=== PATIENT | female | born 1990 | race Caucasian/White ===

== ENCOUNTER 2016-11-21 17:08 | Emergency (ER) | payer SELFPAY ==
[~2016-11-21] VITALS: Ht 152.4 cm; Wt 61.0 kg
[2016-11-21 17:38] VITALS: Ht 152.4 cm; Wt 61.0 kg
[2016-11-21] MEDS ORDERED: SOD CHLORIDE 0.9% 1,000 ML IV STA (18:54)
[2016-11-21] MEDS ORDERED: METOCLOPRAMIDE 10 MG TAB PO ONE (19:00)
[2016-11-21 19:33] LABS: ADD SCAN DIFF NO
[2016-11-21 19:36] LABS: ADD UMIC YES; BASOPHILS % 0.3 % (0.0-2.0); EOSINOPHILS # 0.1 10^3/ul (0.0-0.5); HEMATOCRIT 37.1 % (37.0-47.0); HEMOGLOBIN 13.1 g/dl (12.0-16.0); LYMPHOCYTES # 2.8 10^3/ul (0.8-2.9); LYMPHOCYTES % 31.5 % (15.0-51.0); MEAN CORPUSCULAR HEMOGLOBIN 32.1 pg (29.0-33.0); MEAN CORPUSCULAR HGB CONC 35.3 g/dl (32.0-37.0); MEAN CORPUSCULAR VOLUME 90.9 fl (82.0-101.0); MEAN PLATELET VOLUME 9.7 fl (7.4-10.4); MONOCYTE # 0.7 10^3/ul (0.3-0.9); MONOCYTES % 7.3 % (0.0-11.0); NEUTROPHIL # 5.3 10^3/ul (1.6-7.5); NEUTROPHILS % 59.7 % (39.0-77.0); PLATELET COUNT 269 10^3/UL (140-415); RED BLOOD COUNT 4.08 10^6/ul (4.20-5.40); RED CELL DISTRIBUTION WIDTH 11.9 % (11.5-14.5); URINE BILIRUBIN (Dip) NEGATIVE (NEGATIVE); URINE BLOOD (Dip) 3+ (NEGATIVE); URINE COLOR LT. YELLOW (YELLOW); URINE GLUCOSE (Dip) NEGATIVE (NEGATIVE); URINE KETONES (Dip) NEGATIVE (NEGATIVE); URINE LEUKOCYTE ESTERASE (Dip) 3+ (NEGATIVE); URINE NITRITE (Dip) NEGATIVE (NEGATIVE); URINE TOTAL PROTEIN (Dip) NEGATIVE (NEGATIVE); URINE UROBILINOGEN (Dip) 0.2 E.U./dL (0.1-1.0); WHITE BLOOD COUNT 8.9 10^3/ul (4.8-10.8)
[2016-11-21 19:53] LABS: BACTERIA,URINE MANY; SQUAMOUS EPITHELIAL CELL,UR MANY
[2016-11-21] MEDS ORDERED: CEPHALEXIN 500 MG CAP PO STA (20:02)
--- NOTE | 2016-11-21 20:48 | RADRPT ---
PROCEDURE: US OB. CLINICAL INDICATION: Vaginal bleeding. TECHNIQUE: Transabdominal and transvaginal views of the pelvis are available for review. COMPARISON: No. FINDINGS: Uterus is identified and measured 9.3 cm sagittal by 6 cm AP by 6.9 cm transverse. 2 gestational sacs are identified. Twin A: Placenta: Circumferential grade 0 placenta.. Presentation:Mobile. Mean sac diameter: 1.97 cm equals 6 weeks 6 days for twin A. A yolk sac is identified. [place]-rump length:0.83 cm:6 weeks 5 days. heart rate:119 -121 beats per minute Amniotic fluid volume: Normal. Ultrasound estimated gestational age:6 weeks 5 days plus or minus year weeks 3 days. Twin B: Placenta: Circumferential. Presentation:Mobile with a yolk sac identified. Mean sac diameter: 2.66 cm = 7 weeks 5 days. [place]-rump length:1.1 cm = 7 weeks 1 day. heart rate:141-144 beats per minute. Amniotic fluid volume: Normal. Ultrasound estimated gestational age:The right ovary measured 3.1 x 1.4 x 1.1 cm. There is normal blood flow to the right ovary. The left ovary measures 2.1 by 2.9 x 2.2 cm with normal blood flow o n Doppler imaging. No ovarian or adnexal mass lesion is seen. There is trace fluid in the cul-de-sac. A subchorionic he morrhage is noted in the ventral aspect of the uterus between the gestational sacs. IMPRESSION: 1. A twin a dichorionic diamniotic gestation is identified. The calculated gestational age of twin A is 6 weeks 5 days plus or minus year weeks 3 days. UT (AUA) for twin A is July 12, 2017. 2. The calculated gestational age for twin B is 7 weeks 3 days plus or minus 0 weeks 4 days. TU (AU A) for twin B is 07/07/2017. 2. A subchorionic hemorrhage is identified measuring about 2.1 cm by 0.4 cm abutting the ventral chang faces of both gestational sacs. 3. Trace fluid is noted in the cul-de-sac. 4. Normal ovaries with normal blood flow to both ovaries. RPTAT:AAJJ Ramesh Rai Physician Date Time Electronically viewed and signed by Ramesh Rai Physician on 11/21/2016 20:47 JM/
[2016-11-21] MEDS ORDERED: CEPH-443 PO (20:52)
--- NOTE | 2016-11-21 20:58 | ERD ---
ER Documentation Chief Complaint Date/Time DATE: 11/21/16 TIME: 20:54 Chief Complaint HEAVY VAGINAL BLEEDING, UNKNOWN HOW MANY WEEKS, NAUSEA, VOMITING HPI This is a 26-year-old female patient presenting to the emergency department with last menstrual period October 10 complaining of vaginal bleeding for the past 2 days. Patient states that she uses 1 pad per day. Patient also complains of pelvic pain, rating it 6 out of 10 mostly in the left side. Patient admits to having intermittent nausea and vomiting. She denies any fevers, flank pain, dysuria. Denies diarrhea ROS All systems reviewed and are negative except as per history of present illness. Medications Home Meds Active Scripts Cephalexin* (Keflex*) 500 Mg Capsule, 500 MG PO TID for 7 Days, CAP Prov:MARIIA MA PA-C 11/21/16 Allergies Allergies: Coded Allergies: No Known Drug Allergies (Verified Allergy, Unknown, 11/21/16) PMhx/Soc Medical and Surgical Hx: pt denies Medical Hx, pt denies Surgical Hx Hx Alcohol Use: Yes (SOCIALLY LAST DRANK 15DAYS AGO) Hx Substance Use: No Hx Tobacco Use: No Smoking Status: Never smoker Physical Exam Vitals Vital Signs Date Time Temp Pulse Resp B/P Pulse Ox O2 Delivery O2 Flow Rate FiO2 11/21/16 17:38 98.7 73 17 128/76 100 Physical Exam General: well-developed/well-nourished, in no apparent distress, non-toxic appearing HENT: NC/AT, bilateral tympanic membrane is normal with good cone of light, nares patent, oropharynx clear without exudates Eyes: Conjunctiva normal, PERRLA, EOMI Neck: Supple, no lymphadenopathy Pulm: CTA bilaterally, no rales, rhonchi, or wheezing heard CV: Normal S1S2 GI: Soft, non-distended, normal bowel sounds, tender to palpation in pelvic region, negative rosvings, negative mcgill's Back: No midline tenderness, no masses, No CVAT Ext: No clubbing, cyanosis, or edema Neuro: Alert and Orientated, gait normal Skin: Intact, normal turgor Psych: Normal mood and mentation Result Diagram: 11/21/161924 Results 24 hrs Laboratory Tests Test 11/21/16 19:25 White Blood Count 8.910^3/ul Red Blood Count 4.0810^6/ul Hemoglobin 13.1g/dl Hematocrit 37.1% Mean Corpuscular Volume 90.9fl Mean Corpuscular Hemoglobin 32.1pg Mean Corpuscular Hemoglobin Concent 35.3g/dl Red Cell Distribution Width 11.9% Platelet Count 40527^3/UL Mean Platelet Volume 9.7fl Neutrophils % 59.7% Lymphocytes % 31.5% Monocytes % 7.3% Eosinophils % 1.0% Basophils % 0.3% Nucleated Red Blood Cells % 0.0/100WBC Neutrophils # 5.310^3/ul Lymphocytes # 2.810^3/ul Monocytes # 0.710^3/ul Eosinophils # 0.110^3/ul Basophils # 0.010^3/ul Nucleated Red Blood Cells # 0.010^3/ul Urine Color LT. YELLOW Urine Clarity HAZY Urine pH 6.0 Urine Specific [place] <=1.005 Urine Ketones NEGATIVE Urine Nitrite NEGATIVE Urine Bilirubin NEGATIVE Urine Urobilinogen 0.2 E.U./dL Urine Leukocyte Esterase 3+ Urine Microscopic RBC 5-10/HPF Urine Microscopic WBC 25-50/HPF Urine Squamous Epithelial Cells MANY Urine Bacteria MANY Urine Hemoglobin 3+ Urine Glucose NEGATIVE% Urine Total Protein NEGATIVE Beta HCG, Quantitative 466011.0mIU/ml Current Medications Medications (Trade) Dose Ordered Sig/Nohemi Route PRN Reason Start Time Stop Time Status Last Admin Dose Admin Sodium Chloride (NS) 1,000 ml @ 1,000 mls/hr Q1H STAT IV 11/21/16 18:54 11/21/16 18:59 DC Metoclopramide HCl (Reglan) 10 mg ONCE ONCE PO 11/21/16 19:00 11/21/16 19:01 DC 11/21/16 19:23 Cephalexin (Keflex) 500 mg ONCE STAT PO 11/21/16 20:02 11/21/16 20:03 DC 11/21/16 20:11 Procedures/MDM This is a 26-year-old female last menstrual period October 10 presenting to the emergency department complaining of vaginal bleeding and pelvic pain for the past 2 days likely due to a urinary tract infection. There was no evidence of complete , ectopic , pyelonephritis. Lab work was in the ED. CBC did not show any evidence of leukocytosis or anemia. Beta-hCG was elevated however patient is having twins and within normal limits, 197,550 Patient appears well, stable vital signs for discharge for home. I discussed with her to follow-up with her primary care physician. Discussed return to the ER for any worsening signs or symptoms. She understands and agrees with this plan OB ultrasound: 1. A twin a dichorionic diamniotic gestation is identified. The calculated gestational age of twin A is 6 weeks 5 days plus or minus year weeks 3 days. TU (AUA) for twin A is July 12, 2017. 2. The calculated gestational age for twin B is 7 weeks 3 days plus or minus 0 weeks 4 days. TU (AUA) for twin B is 07/07/2017. 2. A subchorionic hemorrhage is identified measuring about 2.1 cm by 0.4 cm abutting the ventral surfaces of both gestational sacs. 3. Trace fluid is noted in the cul-de-sac. 4. Normal ovaries with normal blood flow to both ovaries. Prescription Keflex is given Departure Diagnosis: Primary Impression: Vaginal bleeding in patient at less than 20 weeks ges... Additional Impression: UTI (urinary tract infection) during Condition: Stable Patient Instructions: Understanding Urinary Tract Infections (UTIs), Bleeding During Early Additional Instructions: Visite a rubio lisa mills para un EXAMEN.Regrese a estas instalaciones si no se mejora rebecca esperbamos o rebecca le dijimos. [place] toda la medicina jonelle y rebecca se le indic. Regrese a estas instalaciones si no se mejora rebecca esperbamos o rebecca le dijimos. MARIIA MA PA-C Nov 21, 2016 20:57
[2016-11-21 21:09] VITALS: BP 125/78; PULSE 94; RESP 16
== END 2016-11-21 21:10 | disposition home or self-care (01) ==
LOC: FTE 17:08
DX: O20.9 Hemorrhage in early pregnancy, unspecified (principal); O23.41 Unspecified infection of urinary tract in pregnancy, first trimester; R10.2 Pelvic and perineal pain; Z3A.01 Less than 8 weeks gestation of pregnancy
CPT/HCPCS: 36415; 76801; 76817; 81001; 84702; 85025; 86900; 86901; J7030

== ENCOUNTER 2017-02-11 00:38 | Emergency (ER) | payer MEDICAID ==
[~2017-02-11] VITALS: Ht 134.6 cm; Wt 64.0 kg
[~2017-02-11 00:38] MED LIST: CEPH-443 PO
[2017-02-11 00:44] VITALS: Ht 134.6 cm; Wt 64.0 kg
[2017-02-11] MEDS ORDERED: ONDANSETRON (ODT) 4 MG TAB ODT STA (03:34)
[2017-02-11 03:52] LABS: URINE BLOOD (Dip) POC 3+ (NEGATIVE)
[2017-02-11 04:02] LABS: BASOPHILS % 0.2 % (0.0-2.0); EOSINOPHILS % 0.2 % (0.0-7.0); HEMATOCRIT 33.1 % (37.0-47.0); HEMOGLOBIN 11.9 g/dl (12.0-16.0); LYMPHOCYTES # 1.8 10^3/ul (0.8-2.9); LYMPHOCYTES % 14.7 % (15.0-51.0); MEAN CORPUSCULAR HEMOGLOBIN 32.8 pg (29.0-33.0); MEAN CORPUSCULAR VOLUME 91.2 fl (82.0-101.0); MEAN PLATELET VOLUME 9.6 fl (7.4-10.4); MONOCYTE # 0.7 10^3/ul (0.3-0.9); MONOCYTES % 6.2 % (0.0-11.0); NEUTROPHILS % 78.3 % (39.0-77.0); PLATELET COUNT 250 10^3/UL (140-415); RED BLOOD COUNT 3.63 10^6/ul (4.20-5.40); RED CELL DISTRIBUTION WIDTH 12.3 % (11.5-14.5)
--- NOTE | 2017-02-11 04:03 | ERD ---
ER Documentation Chief Complaint Date/Time DATE: 02/11/17 TIME: 04:02 Chief Complaint 19 WEEKS FLANK/RIB PAIN, NAUSEA/VOMITING. HPI 36-year-old female presents to emergency department for complaints of right rib pain and right flank pain and right-sided abdominal pain the started yesterday. Patient's having a twin gestation, is currently at 19 week , patient is 2 para 1 0. Patient estimated date of confinement 2017. Patient denies any vaginal bleeding. Patient has been vomiting ever since and has been continuously. Patient denies any fever or chills. Patient took Tylenol home to help with pain with mild relief. Patient describes the pain as sharp pain, 8/10 scale, is worse upon movement. ROS All systems reviewed and are negative except as per history of present illness. Medications Home Meds Active Scripts Cephalexin* (Keflex*) 500 Mg Capsule, 500 MG PO QID for 10 Days, CAP Prov:TAMRA SERNA NP 02/11/17 Acetaminophen* (Tylophen*) 500 Mg Capsule, 1 CAP PO Q6H Y for PAIN AND OR ELEVATED TEMP, #20 CAP Prov:TAMRA SERNA [employer] 02/11/17 Cephalexin* (Keflex*) 500 Mg Capsule, 500 MG PO TID for 7 Days, CAP Prov:MARIIA MA PA-C 11/21/16 Allergies Allergies: Coded Allergies: No Known Drug Allergies (Verified Allergy, Unknown, 11/21/16) PMhx/Soc History of Surgery: No Anesthesia Reaction: No Hx Neurological Disorder: No Hx Respiratory Disorders: No Hx Cardiac Disorders: No Hx Psychiatric Problems: No Hx Miscellaneous Medical Probl: No Hx Alcohol Use: Yes (SOCIALLY LAST DRANK 15DAYS AGO) Hx Substance Use: No Hx Tobacco Use: No Smoking Status: Never smoker FmHx Family History: No coronary disease, No diabetes, No other Physical Exam Vitals Vital Signs Date Time Temp Pulse Resp B/P Pulse Ox O2 Delivery O2 Flow Rate FiO2 02/11/17 06:06 98.6 63 16 110/69 100 Room Air 02/11/17 00:44 98.4 88 16 144/73 100 Physical Exam GENERAL: The patient is well developed and appropriate for usual state of health, in no apparent distress. CHEST: Clear to auscultation bilaterally. There are no rales, wheezes or rhonchi. Tenderness on palpation and right rib right mid back area. HEART: Regular rate and rhythm. No murmurs, clicks, rubs or gallops. No S3 or S4. ABDOMEN: Soft, nontender and nondistended. Good bowel sounds. No rebound or guarding. No gross peritonitis. No gross organomegaly or masses. No Oconnor sign or McBurney point tenderness. BACK: No midline or flank tenderness. EXTREMITIES: Equal pulses bilaterally. There is no peripheral clubbing, cyanosis or edema. No focal swelling or erythema. Full range of motion. Grossly neurovascularly intact. NEURO: Alert and oriented. Cranial nerves 2-12 intact. Motor strength in all 4 extremities with 5/5 strength. Sensation grossly intact. Normal speech and gait. SKIN: There is no apparent rash or petechia. The skin is warm and dry. HEMATOLOGIC AND LYMPHATIC: There is no evidence of excessive bruising or lymphedema. No gross cervical, axillary, or inguinal lymphadenopathy. Result Diagram: 02/11/17 0345 Results 24 hrs Laboratory Tests Test 02/11/17 03:40 02/11/17 03:45 02/11/17 03:57 Urine Color YELLOW Urine Clarity CLOUDY Urine pH 8.0 Urine Specific [place] 1.014 Urine Ketones NEGATIVEmg/dL Urine Nitrite NEGATIVEmg/dL Urine Bilirubin NEGATIVEmg/dL Urine Urobilinogen NEGATIVEmg/dL Urine Leukocyte Esterase 3+A[place]/ul Urine Microscopic RBC > 182/HPF Urine Microscopic WBC > 182/HPF Urine Bacteria MODERATE/HPF Urine Mucus FEW/HPF Urine Hemoglobin 2+mg/dL Urine Glucose NEGATIVEmg/dL Urine Total Protein 2+mg/dl White Blood Count 12.010^3/ul Red Blood Count 3.6310^6/ul Hemoglobin 11.9g/dl Hematocrit 33.1% Mean Corpuscular Volume 91.2fl Mean Corpuscular Hemoglobin 32.8pg Mean Corpuscular Hemoglobin Concent 36.0g/dl Red Cell Distribution Width 12.3% Platelet Count 19011^3/UL Mean Platelet Volume 9.6fl Neutrophils % 78.3% Lymphocytes % 14.7% Monocytes % 6.2% Eosinophils % 0.2% Basophils % 0.2% Nucleated Red Blood Cells % 0.0/100WBC Neutrophils # (Manual) 910^3/ul Lymphocytes # 1.810^3/ul Monocytes # 0.710^3/ul Eosinophils # 0.010^3/ul Basophils # 0.010^3/ul Nucleated Red Blood Cells # 0.010^3/ul Beta HCG, Quantitative 47717.0mIU/ml Bedside Urine pH (LAB) 8.5 Bedside Urine Protein (LAB) 3+ Bedside Urine Glucose (UA) Negative Bedside Urine Ketones (LAB) Negative Bedside Urine Blood 3+ Bedside Urine Nitrite (LAB) Negative Bedside Urine Leukocyte Esterase (L 1+ Current Medications Medications (Trade) Dose Ordered Sig/Nohemi Route PRN Reason Start Time Stop Time Status Last Admin Dose Admin Ondansetron HCl (Zofran Odt) 4 mg ONCE STAT ODT 02/11/17 03:34 02/11/17 03:36 DC 02/11/17 04:09 Acetaminophen (Tylenol Tab) 650 mg ONCE ONCE PO 02/11/17 04:30 02/11/17 04:31 DC 02/11/17 04:09 Ceftriaxone Sodium 1 gm 1 gm ONCE ONCE IM 02/11/17 05:00 02/11/17 05:00 DC Ceftriaxone Sodium (Rocephin) 50 ml @ 100 mls/hr ONCE ONCE IVPB 02/11/17 05:00 02/11/17 05:29 DC 02/11/17 05:09 Patient was given Zofran here in the emergency department. After treatment, patient was able to tolerate po fluids here in the emergency department without any vomiting. There is no signs and symptoms of dehydration. PROCEDURE: Obstetrical ultrasound, limited. CLINICAL INDICATION: Pelvic pain. TECHNIQUE: Multiple sonographic images of the pelvis were obtained using transabdominal technique. Images were obtained with yi scale and color Doppler. The images were reviewed on a PACS workstation. COMPARISON: 11/21/2016. FINDINGS: There is twin living intrauterine gestation. There is normal amniotic fluid volume. Fetus A: Fetus A is in a vertex position. heart tones of 146 beats per minute are identified. The placenta is anterior in location, grade 0. Measurements were made in order to determine age. The results are as follows: BPD = 4.54 cm HC = 16.24 cm AC = 14.00 cm FL = 2.92 cm. Estimated gestational age of approximately 19 weeks and 2 days. The estimated date of delivery is 07/06/2017. The EFW = 279 +/- 42 grams. Fetus B: Fetus B is in a breech position. heart tones of 150 beats per minute are identified. The placenta is fundal in location grade 0. Measurements were made in order to determine age. The results are as follows: BPD = 4.26 cm HC = 15.82 cm AC = 14.31 cm FL = 3.00 cm. Estimated gestational age of approximately 19 weeks and 1 day. The estimated date of delivery is 07/07/2017. The EFW = 289 +/- 43 grams. IMPRESSION: Twin living intrauterine gestation. Fetus A has a gestational age of 19 weeks 2 days and fetus B has a gestational age of 19 weeks 1 day. .Gavino Red MD, Date Time Electronically viewed and signed by .Gavino Red MD, on 02/11/2017 04:12 .T/ CC: TAMRA SERNA [employer]ICE [employer] Procedures/MDM Medical Decision Making: Patients pain and back pain most likely is consistent with musculoskeletal pain from the groin since patient is having twin gestation. Patient also has an incidental finding of urinary tract infection.. RENA results show a viable twin gestation BetaHCG Quantitative is appropriate for The patient is Rh+, does not need RhoGAM this time. There is no signs of symptoms of dehydration. There is low suspicion for sepsis. Patient appears well and is hemodynamically stable. Disposition: Home. Condition: Stable Prescription Tylenol, Keflex Instructions: Patient is advised to do bed rest, avoid heavy lifting, and avoid having sex until cleared by OB doctor. Patient is advised to follow up with OB doctor in 1 to 2 days for reevaluation of symptoms. Patient is advised that is symptoms are worst, severe bleeding, dizziness, severe abdominal pain, fever, worst signs and symptoms to return to the emergency department immediately. Departure Diagnosis: Primary Impression: Rib pain Additional Impressions: UTI (urinary tract infection) Urinary tract infection type: acute cystitis Hematuria presence: without hematuria Qualified Code: N30.00 - Acute cystitis without hematuria Twin gestation in second trimester Multiple gestation type: unspecified Qualified Code: O30.002 - Twin gestation in second trimester, unspecified multiple gestation type Condition: Stable Patient Instructions: Rib Contusion, Understanding Urinary Tract Infections ( UTIs) Additional Instructions: Patient is advised to do bed rest, avoid heavy lifting, and avoid having sex until cleared by OB doctor. Patient is advised to follow up with OB doctor in 1 to 2 days for reevaluation of symptoms. Patient is advised that is symptoms are worst, severe bleeding, dizziness, severe abdominal pain, fever, worst signs and symptoms to return to the emergency department immediately. TAMRA SERNA NP Feb 11, 2017 04:03
--- NOTE | 2017-02-11 04:12 | RADRPT ---
PROCEDURE: Obstetrical ultrasound, limited. CLINICAL INDICATION: Pelvic pain. TECHNIQUE: Multiple sonographic images of the pelvis were obtained using transabdominal technique . Images were obtained with iy scale and color Doppler. The images were reviewed on a PACS works [employer]. COMPARISON: 11/21/2016. FINDINGS: There is twin living intrauterine gestation. There is normal amniotic fluid volume. Fetus A: Fetus A is in a vertex position. heart tones of 146 beats per minute are identified . The placenta is anterior in location, grade 0. Measurements were made in order to determine age. The results are as follows: BPD =4.54 cm HC =16.24 cm AC =14.00 cm FL =2.92 cm. Estimated gestational age of approximately 19 weeks and 2 days. The estimated date of delivery is 07/06/2017. The EFW = 279 +/- 42 grams. Fetus B: Fetus B is in a breech position. heart tones of 150 beats per minute are identified . The placenta is fundal in location grade 0. Measurements were made in order to determine age. The results are as follows: BPD =4.26 cm HC =15.82 cm AC =14.31 cm FL =3.00 cm. Estimated gestational age of approximately 19 weeks and 1 day. The estimated date of delivery is 07/07/2017. The EFW = 289 +/- 43 grams. IMPRESSION: Twin living intrauterine gestation. Fetus A has a gestational age of 19 weeks 2 days and fetus B h as a gestational age of 19 weeks 1 day. .Gavino Red MD, MD Date Time Electronically viewed and signed by .Gavino Red MD, MD on 02/11/2017 04:12 .T/
[2017-02-11 04:16] LABS: ADD UMIC YES; UR ASCORBIC ACID NEGATIVE (NEGATIVE); UR BACTERIA MODERATE /HPF (NONE SEEN); UR BILIRUBIN (Dip) NEGATIVE (NEGATIVE); UR BLOOD (Dip) 2+ mg/dL (NEGATIVE); UR CLARITY CLOUDY (CLEAR); UR COLOR YELLOW (YELLOW); UR GLUCOSE (Dip) NEGATIVE (NEGATIVE); UR KETONES (Dip) NEGATIVE (NEGATIVE); UR LEUKOCYTE ESTERASE (Dip) 3+ Leu/ul (NEGATIVE); UR MUCUS FEW /HPF (NONE SEEN); UR NITRITE (Dip) NEGATIVE (NEGATIVE); UR RBC > 182 /HPF (0-5); UR SPECIFIC GRAVITY (Dip) 1.014 (1.003-1.030); UR TOTAL PROTEIN (Dip) 2+ mg/dl (NEGATIVE); UR UROBILINOGEN (Dip) NEGATIVE (NEGATIVE)
[2017-02-11] MEDS ORDERED: ACETAMINOPHEN 325 MG TAB PO ONE (04:30)
[2017-02-11] MEDS ORDERED: CEFTRIAXONE 1 GM INJ IM ONE (05:00)
[2017-02-11] MEDS ORDERED: CEFTRIAXONE 1 GM/50 ML (PMX) 50 ML IVPB ONE (05:00)
[2017-02-11] MEDS ORDERED: ACET500C5 PO (05:48)
[2017-02-11] MEDS ORDERED: CEPH-443 PO (05:48)
[2017-02-11 06:06] VITALS: BP 110/69; PULSE 63; RESP 16; TEMP 98.6
== END 2017-02-11 06:07 | disposition home or self-care (01) ==
LOC: FTE 00:38
DX: O99.89 Other specified diseases and conditions complicating pregnancy, childbirth and the puerperium (principal); R07.81 Pleurodynia; O23.12 Infections of bladder in pregnancy, second trimester; O30.002 Twin pregnancy, unspecified number of placenta and unspecified number of amniotic sacs, second trimester; R10.2 Pelvic and perineal pain; Z3A.19 19 weeks gestation of pregnancy
CPT/HCPCS: 36415; 76805; 81001; 84702; 85025; 86900; 86901; 96374; J0696; Z7502; Z7610; 81003